=== PATIENT | female | born 1960 | race Caucasian/White ===

== ENCOUNTER → 2017-01-28 | Outpatient (CLI) | payer MEDICAID ==
[2017-01-28 16:33] LABS: Blood Urea Nitrogen 24 mg/dL (7-17); Non-African American GFR(MDRD) >60 (>60 ml/min/1.73 sqM)
--- NOTE | 2017-01-28 18:19 | MR ---
EXAMINATION TYPE: MR lumbar spine wo/w con DATE OF EXAM: 01/28/2017 5:45 PM COMPARISON: Lumbar spine x-ray May 24, 2016. Prior lumbar spine MRI April 25, 2015. HISTORY: Low back pain per order. Leg weakness numbness and pain per patient. TECHNIQUE: Multiplanar, multisequence images of the lumbar spine is performed without and with IV contrast, util izing 15 mL intravenous MultiHance FINDINGS: Sagittal images of the lumbar spine show vertebral body heights and alignment to remain sat isfactory. There is stable slight grade 1 anterolisthesis of L5 on S1. There is redemonstration of ar tifact from disc material L5-S1 level. There is redemonstration of artifact from posterior fusion andressa dware bilaterally at L4-S1 levels. Multilevel disc desiccation is seen above L4 level. Small posterio r disc herniations at L2-L3 and L3-L4 levels are noted above surgical levels. There is spinous proces s resection in lower lumbar levels. The conus medullaris remains normal in position and signal ending at mid L1 vertebral body level. The bone marrow signal intensity is within normal limits. No suspic ious postcontrast enhancement is seen. Axial images show the T12-L1 and L1-L2 levels to remain within normal limits. Axial images at the L2-L3 level show mild broad disc bulge mildly effacing anterior thecal sac, bilat eral neural foramina are patent, no significant change from prior study is seen. Axial images at L3-L4 level show mild to moderate broad disc bulge effacing anterior thecal sac. Ther e is facet degenerative change bilaterally with ligamentum flavum hypertrophy effacing posterior late ral thecal sac. There is mild to moderate right greater than left inferior neural foraminal narrowing redemonstrated. No significant change from prior study is seen. Axial images at L4-L5 level show artifact from surgical change. There is bilateral laminectomy defect s and spinous process resection. Spinal canal is preserved. Bilateral neural foramina are patent. Axial images at L5-S1 level show surgical change from posterior decompression, spinal canal is preser chanda. Artifact from fusion hardware and disc material is present. Bilateral neural foramina are grossl y patent on sagittal images. IMPRESSION: Postsurgical changes lower lumbar levels with stable alignment seen. Multilevel degenerat ashok changes in the mid lumbar spine redemonstrated and stable. No suspicious new findings identified.
== END | disposition home or self-care (01) ==
LOC: RADMRIMAIN 16:39
PROVIDERS: ATTEND Orthopaedic Surgery Orthopaedic Surgery of the Spine
DX: M47.26 Other spondylosis with radiculopathy, lumbar region (principal); M65.30 Trigger finger, unspecified finger; M85.80 Other specified disorders of bone density and structure, unspecified site; Z98.1 Arthrodesis status
CPT/HCPCS: 82565; 84520; 72158; A9577

== ENCOUNTER → 2017-02-01 | Outpatient (CLI) | payer MEDICAID ==
[2017-02-01 12:33] LABS: Anion Gap 8 mmol/L; Blood Urea Nitrogen 15 mg/dL (7-17); Calcium 9.9 mg/dL (8.4-10.2); Carbon Dioxide 29 mmol/L (22-30); Chloride 103 mmol/L (98-107); Glucose 118 mg/dL (74-99); Non-African American GFR(MDRD) >60 (>60 ml/min/1.73 sqM); Potassium 4.6 mmol/L (3.5-5.1); Sodium 140 mmol/L (137-145)
== END | disposition home or self-care (01) ==
LOC: LABWHC1 11:58
PROVIDERS: ATTEND Psychiatry & Neurology Neurology
DX: R53.1 Weakness (principal)
CPT/HCPCS: 36415; 80048

== ENCOUNTER → 2017-04-15 | Outpatient (CLI) | payer MEDICAID ==
[2017-04-15 13:17] VITALS: BP 118/78; PULSE 92; RESP 20; TEMP 98.3
--- NOTE | 2017-04-15 14:10 | P.HPIM ---
History of Present Illness H&P Date: 04/15/17 Chief Complaint: low back and leg pain This is a 56-year-old patient referred by Dr. Ruth for chronic pain in low back and legs. Patient initially had bilateral laminectomy and fusion with hardware placement (screws) at the L5/S1 level, but fell and could not move for an hour. She was given IV steroids and her weakness resolved but now the pain in her low back has worsened. Dr. Ruth referred her for injections after discussing spinal cord stimulation with her. Patient has been taking medications from surgeon including Stapleton and Valium medications with some relief. Patient denies adverse drug effects from medications. Patient also denies new-onset weakness, bowel/bladder incontinence, or any other signs or symptoms of cauda equina syndrome. There are no signs of acute intoxication, and no indications of medication diversion or overuse. Patient notes that pain worsens significantly with standing and walking, and improves with rest, ice and medication. Patient has used several types of medications for pain, including NSAIDS, OPIOIDS (Stapleton), and BENZODIAZEPINES (Valium). Patient HAS had surgery (lami and instrumentation 2013). Patient HAS NOT had spinal injections previously. Patient HAS NOT had physical therapy recently. In addition to above, 13-point review of systems is also negative for chest pain , shortness of breath, changes in vision, changes in hearing, new onset weakness , abdominal pain, diarrhea, extreme fatigue, malaise, fever, skin changes, homicidal or suicidal ideation, or bowel or bladder incontinence. Vital Signs: Reviewed in EMR Gen: WDWN, AAOx3, NAD HEENT: NCAT, EOMI, hearing grossly normal Pulm: resp unlabored Abd: soft, NT, ND Neck: supple, trachea midline ROM in flexion lumbar spine: reduced ROM in extension lumbar spine: reduced Lumbar paravertebral tenderness: + Facet loading: + bilateral SI joint tenderness: + L > R Primo's test: + L > R Straight leg raise: + LLE Neuro: CN II-XII grossly intact, muscle strength lower extremities PRESERVED Past Medical History Past Medical History: Hypertension Additional Past Medical History / Comment(s): , MIGRAINES, FASCITIS, BRONCHITIS , diverticulitis History of Any Multi-Drug Resistant Organisms: None Reported Past Surgical History: Back Surgery, Cholecystectomy Additional Past Surgical History / Comment(s): ANGEL SX, D&C X2 Past Anesthesia/Blood Transfusion Reactions: Postoperative Nausea & Vomiting ( PONV) Smoking Status: Former smoker - Past Family History Mother Additional Family Medical History / Comment(s): none, grandfather had colon ca. Medications and Allergies Home Medications Medication Instructions Recorded Confirmed Type Cyclobenzaprine [Flexeril] 10 mg PO TID PRN 07/16/16 04/15/17 History Diazepam [Valium] 5 mg PO TID PRN 07/16/16 04/15/17 History Gabapentin [Neurontin] 400 mg PO TID 07/16/16 04/15/17 History HYDROcodone/APAP 7.5-325MG [Stapleton 1 tab PO TID PRN 07/16/16 04/15/17 History 7.5-325] Lisinopril [Zestril] 20 mg PO DAILY 07/16/16 04/15/17 History Melatonin 3 mg PO HS PRN 07/16/16 04/15/17 History Allergies Allergy/AdvReac Type Severity Reaction Status Date / Time methocarbamol [From Robaxin] Allergy Swelling Verified 04/15/17 12:58 sumatriptan [From Imitrex] Allergy Shortness Verified 04/15/17 12:58 of breath sumatriptan succinate Allergy Shortness Verified 04/15/17 12:58 [From Imitrex] of Breath Physical Exam Vitals: Vital Signs Temp Pulse Resp BP Pulse Ox 04/15/17 13:01 98.3 F 92 20 118/78 95 Intake and Output 04/14/17 04/15/17 04/15/17 22:59 06:59 14:59 Other: Weight 81.647 kg Patient Weight 04/16/17 06:59 Weight 81.647 kg Assessment and Plan (1) Lumbar postlaminectomy syndrome Status: Chronic (2) Spondylosis of lumbar region without myelopathy or radiculopathy Status: Chronic (3) Chronic pain syndrome Status: Chronic Plan: 1. Explanation: Opioid and psychological risk scores were reviewed. Diagnoses , prognoses, and multiple treatment options including but not limited to physical therapy, interventional therapies, adjuvant medical therapies, narcotic medication therapies, and surgery were discussed with the patient and all questions were answered to the patient's satisfaction. 2. Opioid agreement: no opioids prescribed today 3. Counseling: The patient was counseled extensively on BODY MASS INDEX, EXERCISE. Specifically, the patient was instructed regarding the importance of weight control, and exercise in the context of both chronic pain and overall health. 4. Procedures: caudal DIAMOND with lysis of adhesions 5. Consultations: none 6. Investigations: none 7. Medications: none 8. Disposition: f/u for procedure as scheduled; if little relief and if visibility on X-ray, consider MBB/RFA PQRS measures: 1-Patient's medications are documented in the chart. 2-Tobacco use is negative, counseling given 3-Patient has not had a pneumococcal vaccine. 4-Advanced care planning discussed, patient unable to give. 5-Opioid contract NOT signed with the patient as no opioids given. 6-Pain positive, follow-up visit or procedure scheduled 7-Patient's blood pressure measured and documented, and patient will follow up with the primary care due to hypertension. 8-Patient's weight was measured, and body mass index ABOVE the normal limits, and counseling was done. Patient instructed to follow up with PCP. 9-Patient WAS NOT identified as an unhealthy alcohol user. Time with Patient: Greater than 30
== END | disposition home or self-care (01) ==
LOC: PNWHC3 12:50
PROVIDERS: ATTEND Anesthesiology
DX: M96.1 Postlaminectomy syndrome, not elsewhere classified (principal); M47.816 Spondylosis without myelopathy or radiculopathy, lumbar region; G89.4 Chronic pain syndrome; Z87.891 Personal history of nicotine dependence; Z79.899 Other long term (current) drug therapy; Z88.8 Allergy status to other drugs, medicaments and biological substances
CPT/HCPCS: 99211

== ENCOUNTER → 2018-10-09 | Outpatient (CLI) | payer OTHER, BC | END | disposition home or self-care (01) | LOC: LABPAT 15:14 | PROVIDERS: ATTEND Orthopaedic Surgery Orthopaedic Surgery of the Spine | DX: Z01.812 Encounter for preprocedural laboratory examination (principal) | CPT/HCPCS: 36415; 87070 ==

== ENCOUNTER → 2018-10-27 | Outpatient (CLI) | payer OTHER, BC ==
[2018-10-27 15:41] LABS: Basophils # (A) 0.1 k/uL (0-0.2); Basophils % (A) 1 %; Eosinophils # (A) 0.3 k/uL (0-0.7); Eosinophils % (A) 6 %; HCT 44.1 % (34.0-46.0); HGB 14.8 gm/dL (11.4-16.0); Lymphocytes % (A) 20 %; MCH 31.3 pg (25.0-35.0); MCHC 33.5 g/dL (31.0-37.0); MCV 93.5 fL (80.0-100.0); Mean Platelet Volume 7.4; Monocytes # (A) 0.2 k/uL (0-1.0); Monocytes % (A) 5 %; Neutrophils # (A) 3.1 k/uL (1.3-7.7); Neutrophils % (A) 65 %; Platelet Count 313 k/uL (150-450); RBC 4.72 m/uL (3.80-5.40); RDW 11.4 % (11.5-15.5); WBC 4.9 k/uL (3.8-10.6)
[2018-10-27 15:48] LABS: Appearance,Urine Cloudy (Clear); Bilirubin,Urine Negative (Negative); Blood,Urine Negative (Negative); Color,Urine Yellow; Glucose,Urine (UA) Negative (Negative); Ketones,Urine Negative (Negative); Leukocyte Esterase,Urine Small (Negative); Mucus,Urine Rare /hpf; Nitrite,Urine Negative (Negative); PH, Urine 5.5 (5.0-8.0); Protein,Urine 1+ (Negative); RBC,Urine 9 /hpf (0-5); Specific Gravity,Urine 1.021 (1.001-1.035); Squamous Epithelial Cell,Urine 5 /hpf (0-4); Urobilinogen,Urine <2.0 mg/dL (<2.0); WBC,Urine 1 /hpf (0-5)
[2018-10-27 15:49] LABS: Calcium 10.8 mg/dL (8.4-10.2); Potassium 5.5 mmol/L (3.5-5.1)
[2018-10-27 15:50] LABS: INR 0.9 (<1.2); Partial Thromboplastin Time 28.4 sec (22.0-30.0); Prothrombin Time 9.6 sec (9.0-12.0)
== END | disposition home or self-care (01) ==
LOC: LABPAT 14:05
PROVIDERS: ATTEND Orthopaedic Surgery Orthopaedic Surgery of the Spine
DX: Z01.812 Encounter for preprocedural laboratory examination (principal); M48.061 Spinal stenosis, lumbar region without neurogenic claudication
CPT/HCPCS: 80048; 81001; 85025; 85610; 85730; 86850; 86900; 86901; 87070

== ENCOUNTER 2018-11-05 05:43 | Inpatient (IN) | payer OTHER, BC ==
[~2018-11-05 05:43] MED LIST: BACITRACIN 50,000 UNIT, POLYMYXIN B 500,000 UNIT in SODIUM CHLORIDE 0.9% IRRIGATIO 1,00... IRRIGATION ONE; ceFAZolin IN SWFI 2 GM/20 ML SYRINGE IVP ONE
[2018-11-05] MEDS ORDERED: MIDAZOLAM 2 MG/2 ML VIAL IV PRN (05:52)
[2018-11-05] MEDS ORDERED: SCOPOLAMINE 1.5MG/72HR PATCH TRANSDERM ONE (05:52)
[2018-11-05] MEDS ORDERED: DEXAMETHASONE SOD PHOSPHATE 10 MG/ML 1 ML VIAL IV ONE (05:52)
[2018-11-05] MEDS: LACTATED RINGERS 1,000 ML IV SCH (06:20)
[2018-11-05] MEDS: ONDANSETRON 4 MG/2 ML VIAL IVP ONE ×2 (06:33→11:23)
[2018-11-05] MEDS ORDERED: PROPOFOL 10 MG/ML 20 ML VIAL IV ONE (07:25)
[2018-11-05] MEDS ORDERED: LIDOCAINE 1% INJ 10MG/ML (20 ML MDV) ONE (07:25)
[2018-11-05] MEDS ORDERED: fentaNYL (PF) 50 MCG/ML 2 ML AMP ONE (07:25)
[2018-11-05] MEDS ORDERED: ROCURONIUM BROMIDE 10 MG/ML 10 ML VIAL IV ONE (07:25)
[2018-11-05] MEDS ORDERED: NEOSTIGMINE 1 MG/ML 10 ML VIAL ONE (07:25)
[2018-11-05] MEDS ORDERED: PHENYLEPHRINE-0.9% NACL SYG 1 MG/10 ML SYRINGE ONE (07:25)
[2018-11-05] MEDS ORDERED: GLYCOPYRROLATE 0.2 MG/ML 2 ML VIAL ONE (07:25)
[2018-11-05] MEDS ORDERED: ePHEDrine SULFATE/0.9% NACL/PF 50 MG/5 ML SYRINGE IV ONE (07:25)
[2018-11-05] MEDS ORDERED: MIDAZOLAM 2 MG/2 ML VIAL ONE (07:25)
[2018-11-05] MEDS ORDERED: HYDROmorphone (PF) 1 MG/ML ONE (07:25)
[2018-11-05] MEDS ORDERED: WATER FOR INJECTION, STERILE 10 ML VIAL IV ONE (07:25)
[2018-11-05] MEDS ORDERED: GELATIN SPONGE,ABSORB (LARGE) 1 EACH SPONGE TOPICAL ONE (07:43)
[2018-11-05] MEDS ORDERED: LIDOCAINE 0.5%-EPI 1:200,000 50 ML VIAL SQ ONE ×2 (08:03)
[2018-11-05] MEDS ORDERED: THROMBIN (BOVINE) 5,000 UNIT VIAL TOPICAL ONE (08:03)
[2018-11-05] MEDS ORDERED: LACTATED RINGERS 1,000 ML IV ONE (09:21)
--- NOTE | 2018-11-05 09:44 | XR ---
EXAMINATION TYPE: XR lumbar spine 1V DATE OF EXAM: 11/05/2018 COMPARISON: 05/24/2016 HISTORY: 58-year-old female needle placement TECHNIQUE: Single crosstable lateral view FINDINGS: Intraoperative view shows interbody device at L5-S1 and removal of prior L3-S1 posterior fusion hardw are. Needle is present at the pedicular level of L3. IMPRESSION: Intraoperative radiograph showing surgical needle at the L3 pedicle.
--- NOTE | 2018-11-05 10:51 | XR ---
EXAMINATION TYPE: XR lumbar spine 2 or 3V DATE OF EXAM: 11/05/2018 COMPARISON: NONE HISTORY: 58-year-old female hardware placement TECHNIQUE: 2 views FINDINGS: Images show placement of L3-L5 posterior fusion hardware and interbody device and L3-L4 which appears appropriately positioned. Old interbody device at L5-S1. IMPRESSION: Interval placement of posterior fusion hardware bridging L3 through L5 and new interbody device at L3 -L4.
[2018-11-05] MEDS ORDERED: MAGNESIUM HYDROXIDE 2,400 MG/10 ML CUP PO PRN (11:15)
[2018-11-05] MEDS ORDERED: HYDROmorphone 1 MG/ML 1 ML SYRINGE IVP PRN (11:15)
[2018-11-05] MEDS: HYDROmorphone 0.5 MG/0.5 ML SYRINGE IVP PRN ×8 (11:22→17:41)
[2018-11-05] MEDS: fentaNYL (PF) 50 MCG/ML 2 ML AMP IVP ONE ×2 (11:31→11:33)
--- NOTE | 2018-11-05 11:36 | P.OP ---
Date of Procedure: 11/05/18 Preoperative Diagnosis: L3 4 spinal stenosis Facet cyst L3 4 Adjacent level degeneration L3 4 with prior fusion L4-S1 Lower extremity radiculopathy Low back pain Retained hardware L4 5 L5-S1 Postoperative Diagnosis: Same Anesthesia: GETA Pathology: other (Products of L3 4 laminectomy including facet cyst and cultures sent to pathology and microbiology) Condition: stable Disposition: PACU Description of Procedure: BRIEF OPERATIVE NOTE Preoperative Diagnosis:L3 4 spinal stenosis Facet cyst L3 4 Adjacent level degeneration L3 4 with prior fusion L4-S1 Lower extremity radiculopathy Low back pain Retained hardware L4 5 L5-S1 Postoperative Diagnosis: Same with findings of solid fusion L4 5 L5-S1 Procedure: Removal of hardware deep L4 5 L5-S1 Expiration of fusion L4 5 L5-S1 with findings of solid fusion Laminectomy and decompression with excision of facet cyst/epidural mass at L3 4 Posterior lateral decompression and fusion L3 4 Transforaminal lumbar interbody fusion for a 360 fusion L3 4 Discectomy for decompression L3 4 Placement of interbody graft L3 4 Local autogenous bone grafting Use of Cell Saver Harvesting of bone marrow aspirated via the pedicle of L3 Use of bone graft extenders Use of neuro monitoring Surgeon: Dr. Ruth Voltage Inspector: Eder Gordon is present throughout the entire the case persistence during positioning, dissection, exposure, visualization, and all crucial elements of the case as well as closure. Anesthesia: General anesthesia per Dr. Arrington Estimated blood loss: Approximately 250 mL Complications: None apparent Components implanted: We implanted new K2M [place] pedicle screw system with 6.5 and 7.5 mm pedicle screws with 2 rods and 1 Crawford expandable interbody cage 9-12, with 1 package of Landy allograft bone graft and osteoamp sponge to supplement the local autogenous and bone marrow aspirate graft Disposition: To recovery room in good stable condition. OPERATIVE INDICATIONS The patient has had significant worsening issues in their lower back and lower extremities. In the past she had undergone a decompression and fusion at L4 5 and L5-S1 for her spinal stenosis with lower extremity radiculopathy and back pain. She had done well after that prior surgery at number of years ago. She continued to have some symptoms and difficulties with her regular activities but was able to manage her daily life adequately. However over the past year she has been having worsening symptoms at her back and into her lower extremities. She was resolving new symptoms that seem to be stemming from the L3 4 level worse on the left than the right. She is found have a facet cyst with adjacent level degeneration at L3 4 above her prior fusion of L4 to S1. Her imaging correlated with her low back and lower extremity worsening symptoms. The patient has been through conservative treatment. She is not having any prolonged benefit despite aggressive conservative care. We discussed various treatment options including surgery, and the patient wishes to proceed with surgery We discussed the risk, patient's alternatives and benefits of surgery including but not limited to, risk of bleeding risk of infection, risk of need for further surgery, risk of decreased, loss of motion, muscle function, malunion nonunion, hardware failure, nerve damage, paralysis, heart attack, blindness and . OPERATIVE SUMMARY After discussing all the risks, patient alternatives and benefits at length, the patient elected to proceed with surgical intervention, signed informed consent, and presented for their procedure. The patient was seen and examined in the preoperative holding area and the surgical site was marked. The patient was given antibiotics and brought to the operating room. The patient was sedated and intubated by anesthesia in standard fashion. The patient was positioned on to the operating room table in a prone position on the appropriate frame which was well-padded and well molded. We were careful to pad any bony prominences and pressure points. We were careful to maintain the patient's cervical spine and good neutral alignment and position throughout. The patient was prepped and draped in a normal standard fashion. An appropriate timeout and keystone protocol performed. We were able to proceed with the surgery. The local wound area was infiltrated with local anesthetic. An incision was made at the midline longitudinally over the appropriate levels utilizing her prior incision from L4 to S1 and extending it cephalad over L3. Dissection was taken down subcutaneously to the level of the fascia which was split midline. There is significant scar tissue and dissection was a bit more tedious due to her prior surgery. Dissection was taken over the lamina bilaterally over the facet joints and to the transverse processes. There is significant bone mass formation which I was able dissect around and removed portions of the bony overgrowth over the screws and rods from L4 to S1. I was able expose the hardware appropriately from L4 to S1. I was unable to remove the hardware with the screws and rods and cross-link at L4 5 and L5-S1 from the bone and deep tissue. The hardware was checked was removed and was found to be in total. As able check over the fusion mass and there was no evidence of any motion at L4 5 or L5-S1. We had findings of good solid fusion L4 5 and L5-S1. I exposed further over the transverse process and pedicles of L3. I was able place a sharp awl at the pedicle of L3. Intraoperative x-ray was taken which showed a marker at the appropriate level of L3. With the appropriate level positively confirmed, we were able to proceed with placement of the pedicle holes and screws. The patient had all their twitches back. The wound was copiously irrigated and suctioned dry as had been done periodically throughout the case. Screw holes were established similarly at each level bilaterally at L3. A sharp awl was used to establish the starting hole. It was palpated and found to have good for ray and good base. A monitored Steffee probe was used to establish the pedicle hole. It was positioned so there was no stimulation at 12 mA. The hole was palpated and found to have good for ray and a good base. The hole was tapped with the appropriate sized tap. The transverse process was decorticated with a high-speed bur. I decided to use the screw holes at L5 bilaterally for further fixation. Those holes were palpated and found to have good for ray and a good base as were the other holes. I was able to use these holes to place the appropriate size screw and good alignment and good position with good bony purchase. When the screws were inserted there were stimulated, and found to have no stimulation at 20 mA. I was able to turn my attention to the decompression. decompression was performed with a combination of rongeurs, curettes, Kerrison rongeurs and a ball -tip feeler. All of the bone that was removed was stripped and morcellized for use as autogenous bone graft later in the case. There was evidence of a facet cyst on the left at L3 4. The tissue that was taken down was sent for pathology and intraoperative culture was taken as well. There is no evidence of pus or purulence. There is no evidence of infection. I was able to obtain good central decompression as well as wide bilateral foraminal decompression. There is no evidence of dural tear or leak. Good hemostasis was maintained. The wound was irrigated and suctioned dry. I performed a complete facetectomy at the appropriate level on the most symptomatic side on the left. All bone that was removed was saved for local autogenous bone grafting. I was able to gain access to the disc space at the appropriate level/levels. Good hemostasis was maintained. I was able to protect the neurologic structures. There is some disc protrusion causing further distortion of the traversing nerve root. A discectomy was performed. This provided further decompression. I was also able to perform complete discectomy and endplate preparation with a combination of pituitary curettes, rasps and scrapers. With the interbody space prepared, I was able to do appropriate sizing. The appropriate size cage was chosen. The wound was irrigated and suctioned dry. The interbody space was packed with local autogenous bone graft and a small portion of bone graft substitute, as was the cage itself. Protecting the soft tissue structures, I was able place the cage in good alignment and good position with good fit and fill. There is no evidence of extrusion of the graft material nor protrusion of the interbody device. The wound was irrigated and suctioned dry. With the hardware intact, intraoperative x-ray was again taken which showed good alignment and position of the hardware at the appropriate levels with the TLIF at L3 4 and the hardware from L3 to 5. We were then able to measure, contour and place the rods and appropriate hardware bilaterally. I was able to place capcrews, tighten them down, and torque them off appropriately. With this intact I was able to place the local otitis bone graft with additional bone graft enhancer as necessary into the posterior lateral gutters bilaterally. With the bone graft intact, a stable construct, and good decompression at the appropriate levels, we were able to proceed with closure. Good hemostasis was maintained. There is no evidence of dural tear or leak. The fascia was closed for a watertight closure. The subcutaneous tissue was closed over a superficial drain. The subcuticular tissue was closed with absorbable suture. The wound was cleaned and dried and dressed with the appropriate dressing. The drapes were broken down. The patient was gently rolled back onto their hospital bed being careful to maintain their cervical spine and good neutral alignment and position. They were woken up by anesthesia , extubated, and brought to the recovery room in good stable condition. The patient will be admitted to the hospital for appropriate postoperative care , medical management and monitoring. We will continue to follow them closely about the postoperative course.
[2018-11-05] MEDS: MEPERIDINE 50 MG/ML SYRINGE IVP ONE ×5 (11:40→14:10)
[2018-11-05] MEDS: diphenhydrAMINE 50 MG/ML 1 ML VIAL IVP ONE ×2 (12:33→14:13)
[2018-11-05 14:31] VITALS: BMI 28.6
[2018-11-05] MEDS ORDERED: SODIUM CHLORIDE 0.9% 500 ML 500 ML IV ONE ×2 (14:45→14:53)
[2018-11-05] MEDS: SODIUM CHLORIDE 0.9% 1,000 ML IV SCH ×2 (15:03→23:10)
[2018-11-05] MEDS ORDERED: SODIUM CHLORIDE 0.9% 250 ML IV ONE (17:00)
--- NOTE | 2018-11-05 17:05 | P.CONS ---
History of Present Illness - Reason for Consult Consult date: 11/05/18 Medical management Requesting physician: Michael Ruth - Chief Complaint Spinal stenosis post surgery, L3-L4 laminectomy, hypertension, neuropathy - History of Present Illness 58-year-old female one of my office patient with known for the last few years with past medical history of hypertension, neuropathy, severe GERD, chronic lower back pain who had previously fusion and rhiannon with hardware of the L4 to S1 with Dr. Ruth continue to have lower lumbar pain was seen by Dr. Ruth and found worsening spinal stenosis in the L3-L4 area. Patient was hospitalized today for laminectomy and spinal stenosis surgery for higher level than last time. She is in the floor had Land catheter and still in quite the pain her medication where was started she had slight reaction to her sedation with extreme hypotension was placed on 125 mL of IV fluid for the last few hours and her blood pressure corrected nicely. Review of Systems CONSTITUTIONAL: Well-developed no acute respiratory distress. EYES: No icterus sclerae, no conjunctivitis. EARS, NOSE, MOUTH, THROAT, and FACE: No sore throat, lymphadenopathy, carotid bruits or deformity. RESPIRATORY: Mild shortness of breath no cough wheezes CARDIOVASCULAR: No CP, Palpitation, PND, Orthopnea, or angina. GASTROINTESTINAL: Mild abdominal pain with nausea no vomiting, no Diarrhea or constipation, No GI Bleed, no distention or masses. GENITOURINARY: Negative for Hematuria or UTI, no kidney stones. INTEGUMENT/BREAST: Negative for any muscular injury with mild osteoarthritis.. HEMATOLOGIC/LYMPHATIC: Negative for bleed or purpura. MUSCULOSKELTAL: Negative for Myalgia or arthralgia. NEURLOGICAL: Still have mild burning sensation with neuropathy of the lower extremity with quite bit lower back pain BEHAVIORAL/PSYCH: Negative. ENDOCRINE: Negative. Past Medical History Past Medical History: GERD/Reflux, Hypertension, Neurologic Disorder Additional Past Medical History / Comment(s): MIGRAINES, BRONCHITIS, diverticulitis, ogilivie syndrome, synovial cyst L3-L4, neck pain History of Any Multi-Drug Resistant Organisms: None Reported Past Surgical History: Back Surgery, Cholecystectomy Additional Past Surgical History / Comment(s): ANGEL SX, D&C X2, back surgery with rods and screw s1-L4, lumbar fusion 11/05/2018 Past Anesthesia/Blood Transfusion Reactions: Postoperative Nausea & Vomiting ( PONV) Past Psychological History: No Psychological Hx Reported Smoking Status: Former smoker Past Alcohol Use History: Occasional Additional Past Alcohol Use History / Comment(s): smoker for 1 year <1ppd quit 36 years ago Past Drug Use History: None Reported - Past Family History Mother Family Medical History: No Reported History Additional Family Medical History / Comment(s): none, grandfather had colon ca. Medications and Allergies Home Medications Medication Instructions Recorded Confirmed Type Gabapentin [Neurontin] 400 mg PO HS 07/16/16 11/05/18 History Lisinopril [Zestril] 20 mg PO BID 07/16/16 11/05/18 History Amitriptyline HCl [Elavil] 30 mg PO HS 09/11/18 11/05/18 History Esomeprazole Magnesium [NexIUM] 40 mg PO DAILY 09/11/18 11/05/18 History tiZANidine [Zanaflex] 2 mg PO Q4H 09/11/18 11/05/18 History tiZANidine [Zanaflex] 8 mg PO HS 09/11/18 11/05/18 History ALPRAZolam [Xanax] 0.25 mg PO BID 10/15/18 11/05/18 History buPROPion [Wellbutrin] 100 mg PO BID 10/15/18 11/05/18 History oxyCODONE-APAP 10-325MG [Percocet 1 tab PO DAILY PRN 11/03/18 11/05/18 History 10-325 mg] Allergies Allergy/AdvReac Type Severity Reaction Status Date / Time methocarbamol [From Robaxin] Allergy Swelling Verified 11/05/18 15:21 sumatriptan [From Imitrex] Allergy Shortness Verified 11/05/18 15:21 of breath sumatriptan succinate Allergy Shortness Verified 11/05/18 15:21 [From Imitrex] of Breath Physical Exam Vitals: Vital Signs Temp Pulse Pulse Pulse Resp BP BP 11/05/18 16:39 16 105/71 11/05/18 16:37 11/05/18 15:40 83/51 11/05/18 15:14 97.3 F L 80 14 90/55 11/05/18 14:55 12 87/53 11/05/18 14:42 12 74/46 11/05/18 13:45 89 16 86/44 11/05/18 13:30 58 L 16 86/48 11/05/18 13:15 63 16 88/41 11/05/18 13:00 62 16 91/45 11/05/18 12:52 99/54 11/05/18 12:45 56 L 16 86/50 11/05/18 12:30 65 16 93/53 11/05/18 12:17 85 16 90/54 11/05/18 12:02 62 16 97/55 11/05/18 11:45 81 16 105/72 11/05/18 11:30 70 16 105/72 11/05/18 11:17 98 F 84 12 128/75 11/05/18 06:40 98 F 69 18 148/95 Pulse Ox 11/05/18 16:39 11/05/18 16:37 94 L 11/05/18 15:40 11/05/18 15:14 100 11/05/18 14:55 100 11/05/18 14:42 100 11/05/18 13:45 98 11/05/18 13:30 99 11/05/18 13:15 97 11/05/18 13:00 96 11/05/18 12:52 11/05/18 12:45 96 11/05/18 12:30 98 11/05/18 12:17 98 11/05/18 12:02 98 11/05/18 11:45 98 11/05/18 11:30 100 11/05/18 11:17 99 11/05/18 06:40 98 Intake and Output 11/05/18 11/05/18 11/05/18 06:59 14:59 22:59 Intake Total 100 2501 1000 Output Total 500 Balance 100 2000 1000 Intake: IV 100 2501 1000 Sodium Chloride 0.9% 500 1000 ml 500 ml @ 999 mls/hr IV .Q31M ONE Rx#:[id number] Output: Urine 250 Estimated Blood Loss 250 Other: Voiding Method Indwelling Catheter General Appearance: Alert, cooperative, no distress, appears stated age. Neck HEENT: Supple, no lymphadenopathy, no thyroid enlargement, no carotid bruits. Lungs: Clear to auscultation without crackles or wheezes no rhonchi, no deformity. Chest Wall: normal expansion with deep inspiration no tenderness and no deformity was found on exam, no costochondral pain or discomfort. Heart: Regular rate and rhythm, S1, S2 normal, no murmur, rub or gallop. Back: Incision in the L-spine been cover with dressing with no bleeding still have significant tenderness over the surgical site area have drainage tube as well. Abdomen: Soft, non-tender, bowel sounds active all four quadrants, no masses, no organomegaly. Extremities: Extremities normal, atraumatic, no cyanosis or edema. Pulses: 2+ and symmetric. Skin: Skin color, texture, tugor normal, no rashes or lesions. Neurologic: Alert oriented x3 cranial nerves II through XII intact, no motor deficit, no abnormal balance or gait. Results CBC & Chem 7: 11/05/18 06:25 Assessment and Plan Plan: 1 post L3-L4 laminectomy and spinal stenosis surgery: Doing better so far resume home meds continue pain management continue to watch patient hemodynamic status, GI, DVT and pulmonary prophylaxis protocol. 2 chronic pain with postsurgical pain: Patient remain on Dilaudid and Zanaflex for now. 3 hypertension: Continue lisinopril 20 mg twice a day. 4 chronic neuropathy: Mostly affected by the severity of her back problem has been on gabapentin 400 mg daily at bedtime. 5 Chronic depression: Has been on Wellbutrin 100 mg twice a day and Elavil 30 mg daily at bedtime. 6 GERD/GI prophylaxis: Patient is on Nexium 40 mg daily. DVT prophylaxis: Patient will be on early mobilization and knee-high VINCENT hose if needed heparin subcutaneous can be use. CODE STATUS: Full code. Dr. Ruth thank you very much for the consult and check and be any further help to please let me know.
[2018-11-05] MEDS: ONDANSETRON 4 MG/2 ML VIAL IVP PRN (17:41)
[2018-11-05] MEDS: oxyCODONE-APAP 10-325MG 1 EACH TAB PO PRN (17:52)
[2018-11-05] MEDS: ALPRAZolam 0.25 MG TAB PO PRN (17:55)
[2018-11-05] MEDS: HYDROmorphone 1 MG/ML 1 ML SYRINGE IVP PRN ×2 (20:44→23:40)
[2018-11-05] MEDS ORDERED: LISINOPRIL 20 MG TAB PO SCH (21:00)
[2018-11-05] MEDS ORDERED: GABAPENTIN 400 MG CAP PO SCH (21:00)
[2018-11-05] MEDS: AMITRIPTYLINE HCL 10 MG TAB PO SCH (21:17)
[2018-11-05] MEDS: tiZANidine 4 MG TAB PO SCH (21:17)
[2018-11-05] MEDS: buPROPion 100 MG TAB PO SCH (21:17)
[2018-11-06] MEDS: ONDANSETRON 4 MG/2 ML VIAL IVP PRN ×2 (03:02→10:04)
[2018-11-06] MEDS: HYDROmorphone PCA 5 MG/25 ML SYRINGE IV PRN ×2 (03:31→21:36)
[2018-11-06] MEDS: LACTATED RINGERS 1,000 ML IV SCH (04:44)
[2018-11-06] MEDS: PANTOPRAZOLE 40 MG TABLET PO SCH (07:59)
[2018-11-06] MEDS: SENNOSIDES-DOCUSATE SODIUM 1 EACH TAB PO SCH (07:59)
[2018-11-06] MEDS: buPROPion 100 MG TAB PO SCH ×2 (07:59→21:28)
[2018-11-06] MEDS: ALPRAZolam 0.25 MG TAB PO PRN (08:08)
[2018-11-06 08:43] LABS: Potassium 4.2 mmol/L (3.5-5.1)
[2018-11-06 08:44] LABS: Calcium 8.7 mg/dL (8.4-10.2)
[2018-11-06 08:46] LABS: Basophils % (A) 0 %; Eosinophils # (A) 0.2 k/uL (0-0.7); Eosinophils % (A) 2 %; HCT 31.8 % (34.0-46.0); Lymphocytes # (A) 0.4 k/uL (1.0-4.8); Lymphocytes % (A) 4 %; MCH 31.7 pg (25.0-35.0); MCHC 32.6 g/dL (31.0-37.0); MCV 97.3 fL (80.0-100.0); Mean Platelet Volume 6.8; Monocytes # (A) 0.4 k/uL (0-1.0); Monocytes % (A) 4 %; Neutrophils # (A) 8.7 k/uL (1.3-7.7); Neutrophils % (A) 88 %; Platelet Count 193 k/uL (150-450); RBC 3.27 m/uL (3.80-5.40); RDW 11.5 % (11.5-15.5); WBC 9.9 k/uL (3.8-10.6)
[2018-11-06 08:50] LABS: HGB 10.4 gm/dL (11.4-16.0)
[2018-11-06] MEDS ORDERED: BISACODYL 10 MG SUPP RECTAL STA (09:12)
[2018-11-06] MEDS: GABAPENTIN 400 MG CAP PO SCH ×2 (10:04→21:28)
--- NOTE | 2018-11-06 10:13 | P.PN ---
Progress Note - Text Progress Note Date: 11/06/18 Postoperative day #1 Patient is seen and examined today at bedside. The patient has some pain around the surgical site as expected. She states she is having quite severe pain medication is helping some degree. She is on a Dilaudid BURNER TENDER. She has been up out of bed couple of times to use the bathroom. She was having some nausea yesterday but feels that it has cleared up today she has not yet had significant oral intake. Physical Exam Afebrile with stable vital signs Abdomen is soft nontender. Chest has good excursion deep and space expiration The incision site is clean dry and intact. No erythema there is no purulence. The dressing and the drain are intact at her back Extremities have not had neurologic change from prior to surgery. She has sustained dorsiflexion plantarflexion and EHL intact Calves and thighs were soft nontender without evidence of DVT. Assessment/Plan Postoperative day #1 status post open decompression and fusion L3 4 with removal of hardware L4 5 L5-S1 for her spinal stenosis adjacent level degeneration facet cyst with lower extremity radiculopathy and weakness. Patient is progressing as expected from the surgery. We will try to get her more mobile today. Hopefully we'll be able to decrease the IV pain medication that she has been using and turgor her to orals in the next day or 2 We will continue to increase the patient's mobilization with therapy. We will continue pain control with oral or IV medications. We'll continue to follow patient closely.
--- NOTE | 2018-11-06 13:16 | P.PN ---
Subjective Progress Note Date: 11/06/18 58-year-old female one of my office patient with known for the last few years with past medical history of hypertension, neuropathy, severe GERD, chronic lower back pain who had previously fusion and rhiannon with hardware of the L4 to S1 with Dr. Ruth continue to have lower lumbar pain was seen by Dr. Ruth and found worsening spinal stenosis in the L3-L4 area. Patient was hospitalized today for laminectomy and spinal stenosis surgery for higher level than last time. She is in the floor had Land catheter and still in quite the pain her medication where was started she had slight reaction to her sedation with extreme hypotension was placed on 125 mL of IV fluid for the last few hours and her blood pressure corrected nicely. 11/06: Patient continues to have problems with pain control complaining of back spasms. She is on a WHITEWASHER for pain control. Gabapentin will be increased to twice daily at 400 mg each. She has been resumed on Zanaflex and encouraged to request this as needed. Land catheter was removed last evening. Patient is having difficulty with constipation and Dulcolax suppository added. Blood pressure is better today at 106/70. Lisinopril will remain on hold. Pulse ox is 94% on 2 L. Review of Systems CONSTITUTIONAL: Well-developed no acute respiratory distress. EYES: No icterus sclerae, no conjunctivitis. EARS, NOSE, MOUTH, THROAT, and FACE: No sore throat, lymphadenopathy, carotid bruits or deformity. RESPIRATORY: Mild shortness of breath no cough wheezes CARDIOVASCULAR: No CP, Palpitation, PND, Orthopnea, or angina. GASTROINTESTINAL: Mild abdominal pain with nausea no vomiting, no Diarrhea or constipation, No GI Bleed, no distention or masses. GENITOURINARY: Negative for Hematuria or UTI, no kidney stones. INTEGUMENT/BREAST: Negative for any muscular injury with mild osteoarthritis.. HEMATOLOGIC/LYMPHATIC: Negative for bleed or purpura. MUSCULOSKELTAL: Negative for Myalgia or arthralgia. Complains of back pain and spasm NEURLOGICAL: Still have mild burning sensation with neuropathy of the lower extremity with quite bit lower back pain BEHAVIORAL/PSYCH: Negative. ENDOCRINE: Negative. Objective - Vital Signs Vital signs: Vital Signs Temp 98.3 F 11/06/18 08:04 Pulse 96 11/06/18 08:04 Resp 16 11/06/18 08:04 BP 106/70 11/06/18 08:04 Pulse Ox 94 L 11/06/18 09:46 Intake & Output 11/05/18 11/06/18 11/06/18 18:59 06:59 18:59 Intake Total 3501 Output Total 500 3175 Balance 3001 -3175 Intake: IV 3501 Sodium Chloride 0.9% 500 1000 ml 500 ml @ 999 mls/hr IV .Q31M ONE Rx#:[id number] Output: Urine 250 3175 Estimated Blood Loss 250 Other: Voiding Method Indwelling Catheter Indwelling Catheter - Exam General Appearance: Alert, cooperative, acute distress secondary to pain, appears stated age. Neck HEENT: Supple, no lymphadenopathy, no thyroid enlargement, no carotid bruits. Lungs: Clear to auscultation without crackles or wheezes no rhonchi, no deformity. Chest Wall: normal expansion with deep inspiration no tenderness and no deformity was found on exam, no costochondral pain or discomfort. Heart: Regular rate and rhythm, S1, S2 normal, no murmur, rub or gallop. Back: Incision in the L-spine been cover with dressing with no bleeding still have significant tenderness over the surgical site area have drainage tube as well. Abdomen: Soft, non-tender, bowel sounds active all four quadrants, no masses, no organomegaly. Extremities: Extremities normal, atraumatic, no cyanosis or edema. Pulses: 2+ and symmetric. Skin: Skin color, texture, tugor normal, no rashes or lesions. Neurologic: Alert oriented x3 cranial nerves II through XII intact, no motor deficit, no abnormal balance or gait. - Labs CBC & Chem 7: 11/06/18 07:54 11/06/18 07:54 Labs: Abnormal Lab Results - Last 24 Hours (Table) 11/06/18 11/06/18 Range/Units 07:54 07:54 RBC 3.27 L (3.80-5.40) m/uL Hgb 10.4 L D (11.4-16.0) gm/dL Hct 31.8 L (34.0-46.0) % Neutrophils # 8.7 H (1.3-7.7) k/uL Lymphocytes # 0.4 L (1.0-4.8) k/uL Sodium 136 L (137-145) mmol/L Glucose 104 H (74-99) mg/dL Microbiology - Last 24 Hours (Table) 11/05/18 10:35 Gram Stain - Preliminary Other - Other Wound Culture - Preliminary 11/05/18 10:35 Anaerobic Culture - Preliminary Other - Other Assessment and Plan Plan: 1 post L3-L4 laminectomy and spinal stenosis surgery: Doing better so far resume home meds continue pain management continue to watch patient hemodynamic status, GI, DVT and pulmonary prophylaxis protocol. Gabapentin increased to twice daily, continue WHITEWASHER, continue Zanaflex. 2 chronic pain with postsurgical pain: Patient remain on Dilaudid and Zanaflex for now. 3 hypertension: Continue lisinopril 20 mg twice a day. 4 chronic neuropathy: Mostly affected by the severity of her back problem has been on gabapentin 400 mg daily at bedtime. 5 recurrent depression: Has been on Wellbutrin 100 mg twice a day and Elavil 30 mg daily at bedtime. 6 GERD/GI prophylaxis: Patient is on Nexium 40 mg daily. DVT prophylaxis: Patient will be on early mobilization and knee-high VINCENT hose if needed heparin subcutaneous can be use. CODE STATUS: Full code. Discharge plan: Most likely return home Impression and plan of care have been directed as dictated by the signing physician. Annette Cruz nurse practitioner acting as scribe for signing physician.
[2018-11-06] MEDS: SODIUM CHLORIDE 0.9% 1,000 ML IV SCH (15:14)
[2018-11-06] MEDS: tiZANidine 4 MG TAB PO SCH (15:31)
[2018-11-06] MEDS: BENZOCAINE/MENTHOL LOZENG 1 EACH LOZENGE MUCOUS MEM PRN (17:40)
[2018-11-06] MEDS: AMITRIPTYLINE HCL 10 MG TAB PO SCH (21:28)
[2018-11-07] MEDS: BENZOCAINE/MENTHOL LOZENG 1 EACH LOZENGE MUCOUS MEM PRN ×3 (01:51→18:05)
[2018-11-07] MEDS: SODIUM CHLORIDE 0.9% 1,000 ML IV SCH ×2 (05:31→17:17)
[2018-11-07] MEDS ORDERED: BISACODYL 10 MG SUPP RECTAL STA (07:03)
[2018-11-07] MEDS: buPROPion 100 MG TAB PO SCH ×2 (07:14→21:27)
[2018-11-07] MEDS: GABAPENTIN 400 MG CAP PO SCH ×2 (07:14→21:26)
[2018-11-07] MEDS: SENNOSIDES-DOCUSATE SODIUM 1 EACH TAB PO SCH (07:14)
[2018-11-07] MEDS: ALPRAZolam 0.25 MG TAB PO PRN (07:15)
[2018-11-07] MEDS: PANTOPRAZOLE 40 MG TABLET PO SCH (07:15)
[2018-11-07] MEDS: ONDANSETRON 4 MG/2 ML VIAL IVP PRN ×2 (07:27→15:17)
[2018-11-07] MEDS: LACTATED RINGERS 1,000 ML IV SCH (07:31)
--- NOTE | 2018-11-07 12:21 | P.PN ---
Progress Note - Text Progress Note Date: 11/07/18 Orthopedic Spine Patient is a pleasant 58-year-old female who is seen and examined at the bedside following posterior lateral decompression and fusion performed Saturday. Patient states they are doing ok postsurgically but continues to have significant pain. She has not been receiving oral pain medication. She continues to use a PRODUCTION LAPPING MACHINE OPERATOR received IV pain medications. She has not had a bowel movement postoperatively and is having some abdominal pain. Today she states she has some pain in the right lower extremity. She denies significant left lower extremity pain. She has been able to ambulate to the restroom. She has significant difficulty with changing positions due to her pain at the surgical site.. Currently does not complain of nausea, vomiting, fever, or chills. Patient is eating and voiding freely without difficulty. Nursing is at bedside and states patient will be given a suppository to aid in a bowel movement. Physical Exam Lumbar Fusion: Status post surgical day number 2 Patient is awake, alert, and oriented 3 Vital signs stable Good chest excursion with deep inspiration and expiration Abdomen soft nontender Dorsiflexion, plantarflexion, and extensor hallucis longus positive sustained bilaterally No signs or symptoms of DVT; no calf pain; pneumatic cuffs intact bilateral lower extremities Dressing is is removed during physical examination; no erythema, purulence, or signs of infection at the surgical site Hemovac drain is discontinued during physical examination Nonstick Telfa and Tegaderm reapplied over the surgical site Neurovascularly intact bilaterally lower extremities Assessment: L3-4 posterior lateral decompression and fusion with transforaminal lumbar interbody fusion with hardware extension to L5 and removal of hardware at L4-5 and L5-S1 Low back pain Lower extremity radiculopathy Constipation History of hypertension Plan: 1. Ambulate as tolerated; work with Physical Therapy to increase mobilization; patient may wear LSO brace while working with therapy and really increased ambulation 2. Continue pain control with IV and oral medications; will plan to discontinue Dilaudid PRODUCTION LAPPING MACHINE OPERATOR; patient may receive Dilaudid push IV and Percocet 10 mg/325 mg as prescribed as needed for relief of her symptoms; postoperative pain medications will be managed by Dr. Gaines in pain management 3. Dressing changed to Telfa and Tegaderm; Hemovac drain discontinued 4. Medical management can continue to manage patient for patient's other medical issues; patient currently have some difficulty with constipation and will be receiving a suppository to help facilitate a bowel movement 5. We will continue to follow the patient closely; patient is able to improve over the weekend, we'll plan for discharge this or this coming Saturday 6. Patient can follow-up with Eder Verduzco PA-C or Dr. Freddy Ruth at [facility] in 2-3 weeks following discharge
--- NOTE | 2018-11-07 14:01 | P.PN ---
Subjective Progress Note Date: 11/07/18 58-year-old female one of my office patient with known for the last few years with past medical history of hypertension, neuropathy, severe GERD, chronic lower back pain who had previously fusion and rhiannon with hardware of the L4 to S1 with Dr. Ruth continue to have lower lumbar pain was seen by Dr. Ruth and found worsening spinal stenosis in the L3-L4 area. Patient was hospitalized today for laminectomy and spinal stenosis surgery for higher level than last time. She is in the floor had Land catheter and still in quite the pain her medication where was started she had slight reaction to her sedation with extreme hypotension was placed on 125 mL of IV fluid for the last few hours and her blood pressure corrected nicely. 11/06: Patient continues to have problems with pain control complaining of back spasms. She is on a PATTERN GRADER SUPERVISOR for pain control. Gabapentin will be increased to twice daily at 400 mg each. She has been resumed on Zanaflex and encouraged to request this as needed. Land catheter was removed last evening. Patient is having difficulty with constipation and Dulcolax suppository added. Blood pressure is better today at 106/70. Lisinopril will remain on hold. Pulse ox is 94% on 2 L. 11/07: patient states she continues to have pain but a little bit better from yesterday. She states she is sleeping on and off. She has been able to get up to the bathroom. She has voided. She refused to take Dulcolax suppository yesterday but has asked for it today. Orthopedics has ordered back brace. Plan is to switch her from PATTERN GRADER SUPERVISOR over to oral pain medication with anticipated discharge on Saturday or Saturday. She has been afebrile, pulse ox 94% on room air, blood pressure 124/75, pulse running in the 90s. Review of Systems CONSTITUTIONAL: Well-developed no acute respiratory distress. EYES: No icterus sclerae, no conjunctivitis. EARS, NOSE, MOUTH, THROAT, and FACE: No sore throat, lymphadenopathy, carotid bruits or deformity. RESPIRATORY: Mild shortness of breath no cough wheezes CARDIOVASCULAR: No CP, Palpitation, PND, Orthopnea, or angina. GASTROINTESTINAL: Mild abdominal pain with nausea no vomiting, no Diarrhea or constipation, No GI Bleed, no distention or masses. GENITOURINARY: Negative for Hematuria or UTI, no kidney stones.denies urinary retention INTEGUMENT/BREAST: Negative for any muscular injury with mild osteoarthritis.. HEMATOLOGIC/LYMPHATIC: Negative for bleed or purpura. MUSCULOSKELTAL: Negative for Myalgia or arthralgia. Complains of back pain and spasm NEURLOGICAL: Still have mild burning sensation with neuropathy of the lower extremity with quite bit lower back pain BEHAVIORAL/PSYCH: Negative. ENDOCRINE: Negative. Objective - Vital Signs Vital signs: Vital Signs Temp 99.2 F 11/07/18 07:30 Pulse 100 11/07/18 07:30 Resp 18 11/07/18 07:30 BP 124/75 11/07/18 07:30 Pulse Ox 94 L 11/07/18 07:30 Intake & Output 11/06/18 11/07/18 11/07/18 18:59 06:59 18:59 Intake Total 675 Output Total 800 Balance -800 675 Intake: Intake, IV Titration 675 Amount Sodium Chloride 0.9% 1, 675 000 ml @ 75 mls/hr IV . [id number] MARIO ALBERTO Rx#:[id number] Output: Urine 800 Uretheral (Land) 800 Other: Voiding Method Toilet # Voids 1 2 - Exam General Appearance: Alert, cooperative, mild distress secondary to pain, appears stated age. Neck HEENT: Supple, no lymphadenopathy, no thyroid enlargement, no carotid bruits. Lungs: Clear to auscultation without crackles or wheezes no rhonchi, no deformity. Chest Wall: normal expansion with deep inspiration no tenderness and no deformity was found on exam, no costochondral pain or discomfort. Heart: Regular rate and rhythm, S1, S2 normal, no murmur, rub or gallop. Back: Incision in the L-spine been cover with dressing with no bleeding still have significant tenderness over the surgical site area have drainage tube as well. Abdomen: Soft, non-tender, bowel sounds active all four quadrants, no masses, no organomegaly. Extremities: Extremities normal, atraumatic, no cyanosis or edema. Pulses: 2+ and symmetric. Skin: Skin color, texture, tugor normal, no rashes or lesions. Neurologic: Alert oriented x3 cranial nerves II through XII intact, no motor deficit. - Labs CBC & Chem 7: 11/06/18 07:54 11/06/18 07:54 Labs: Microbiology - Last 24 Hours (Table) 11/05/18 10:35 Gram Stain - Preliminary Other - Other Wound Culture - Preliminary Assessment and Plan Plan: 1 post L3-L4 laminectomy and spinal stenosis surgery: Doing better so far resume home meds continue pain management continue to watch patient hemodynamic status, GI, DVT and pulmonary prophylaxis protocol. Gabapentin increased to twice daily, continue Zanaflex.PC to be transitioned to oral pain control. Back brace has been ordered by orthopedics. 2 chronic pain with postsurgical pain: Patient remain on Dilaudid and Zanaflex for now. 3 hypertension: Continue lisinopril 20 mg twice a day. 4 chronic neuropathy: Mostly affected by the severity of her back problem has been on gabapentin 400 mg daily at bedtimeincrease to twice daily. 5 recurrent depression: Has been on Wellbutrin 100 mg twice a day and Elavil 30 mg daily at bedtime. 6 GERD/GI prophylaxis: Patient is on Nexium 40 mg daily. DVT prophylaxis: Patient will be on early mobilization and knee-high VINCENT hose if needed heparin subcutaneous can be use. CODE STATUS: Full code. Discharge plan: Most likely return homeon Saturday or Saturday Impression and plan of care have been directed as dictated by the signing physician. Annette Cruz nurse practitioner acting as scribe for signing physician.
[2018-11-07] MEDS: HYDROmorphone 1 MG/ML 1 ML SYRINGE IVP PRN ×3 (15:13→21:31)
[2018-11-07] MEDS: AMITRIPTYLINE HCL 10 MG TAB PO SCH (21:27)
[2018-11-07] MEDS: tiZANidine 4 MG TAB PO SCH (21:27)
[2018-11-08] MEDS: BENZOCAINE/MENTHOL LOZENG 1 EACH LOZENGE MUCOUS MEM PRN (05:04)
[2018-11-08] MEDS: PANTOPRAZOLE 40 MG TABLET PO SCH (07:05)
[2018-11-08] MEDS: oxyCODONE-APAP 10-325MG 1 EACH TAB PO PRN ×3 (07:05→22:26)
[2018-11-08] MEDS: LACTATED RINGERS 1,000 ML IV SCH (07:06)
[2018-11-08] MEDS: SODIUM CHLORIDE 0.9% 1,000 ML IV SCH ×2 (07:06→20:54)
[2018-11-08] MEDS ORDERED: BISACODYL 10 MG SUPP RECTAL STA (07:30)
[2018-11-08] MEDS: GABAPENTIN 400 MG CAP PO SCH ×2 (11:09→21:06)
[2018-11-08] MEDS: buPROPion 100 MG TAB PO SCH ×2 (11:10→21:06)
[2018-11-08] MEDS: SENNOSIDES-DOCUSATE SODIUM 1 EACH TAB PO SCH (11:10)
[2018-11-08] MEDS: ONDANSETRON 4 MG/2 ML VIAL IVP PRN ×2 (12:19→21:12)
--- NOTE | 2018-11-08 13:05 | P.PN ---
Subjective 58-year-old female one of my office patient with known for the last few years with past medical history of hypertension, neuropathy, severe GERD, chronic lower back pain who had previously fusion and rhiannon with hardware of the L4 to S1 with Dr. Ruth continue to have lower lumbar pain was seen by Dr. Ruth and found worsening spinal stenosis in the L3-L4 area. Patient was hospitalized today for laminectomy and spinal stenosis surgery for higher level than last time. She is in the floor had Alnd catheter and still in quite the pain her medication where was started she had slight reaction to her sedation with extreme hypotension was placed on 125 mL of IV fluid for the last few hours and her blood pressure corrected nicely. 11/06: Patient continues to have problems with pain control complaining of back spasms. She is on a THERAPIST ASST for pain control. Gabapentin will be increased to twice daily at 400 mg each. She has been resumed on Zanaflex and encouraged to request this as needed. Land catheter was removed last evening. Patient is having difficulty with constipation and Dulcolax suppository added. Blood pressure is better today at 106/70. Lisinopril will remain on hold. Pulse ox is 94% on 2 L. 11/07: patient states she continues to have pain but a little bit better from yesterday. She states she is sleeping on and off. She has been able to get up to the bathroom. She has voided. She refused to take Dulcolax suppository yesterday but has asked for it today. Orthopedics has ordered back brace. Plan is to switch her from THERAPIST ASST over to oral pain medication with anticipated discharge on Saturday or Saturday. She has been afebrile, pulse ox 94% on room air, blood pressure 124/75, pulse running in the 90s. 11/08: Patient resting in bed, patient is tolerating diet, reports pain is controlled. She has been ambulating to the bathroom. She continues to receive Dilaudid for pain control as well as Neurontin and Percocet. She reports she did have a bowel movement yesterday after suppository although would like another one today. She denies any nausea vomiting or abdominal pain. She remains afebrile, blood pressure 143/88, 94% on 2 L via nasal cannula. Objective - Vital Signs Vital signs: Vital Signs Temp 99.2 F 11/08/18 06:26 Pulse 106 H 11/08/18 06:26 Resp 16 11/08/18 07:12 BP 143/88 11/08/18 06:26 Pulse Ox 94 L 11/08/18 06:26 Intake & Output 11/07/18 11/08/18 11/08/18 18:59 06:59 18:59 Other: Voiding Method Toilet # Voids 4 2 - Exam General Appearance: Alert, cooperative, no acute distress. Neck HEENT: Supple, no lymphadenopathy, no thyroid enlargement, no carotid bruits. Lungs: Clear to auscultation without crackles or wheezes no rhonchi, no deformity. Chest Wall: normal expansion with deep inspiration no tenderness and no deformity was found on exam, no costochondral pain or discomfort. Heart: Regular rate and rhythm, S1, S2 normal, no murmur, rub or gallop. Back: Incision in the L-spine been cover with dressing with no bleeding still have significant tenderness over the surgical site area Abdomen: Soft, non-tender, bowel sounds active all four quadrants, no masses, no organomegaly. Extremities: Extremities normal, atraumatic, no cyanosis or edema. Pulses: 2+ and symmetric. Skin: Skin color, texture, tugor normal, no rashes or lesions. Neurologic: Alert oriented x3 cranial nerves II through XII intact, no motor deficit. - Labs CBC & Chem 7: 11/06/18 07:54 11/06/18 07:54 Labs: Microbiology - Last 24 Hours (Table) 11/05/18 10:35 Anaerobic Culture - Preliminary Other - Other 11/05/18 10:35 Gram Stain - Final Other - Other Wound Culture - Final Assessment and Plan Plan: 1 post L3-L4 laminectomy and spinal stenosis surgery: Doing better so far resume home meds continue pain management continue to watch patient hemodynamic status, GI, DVT and pulmonary prophylaxis protocol. Continue Gabapentin twice daily, continue [email or web address] to be transitioned to oral pain control. Back brace has been ordered by orthopedics. 2 chronic pain with postsurgical pain: Patient remain on Dilaudid and Zanaflex for now. 3 hypertension: Continue lisinopril 20 mg twice a day. 4 chronic neuropathy: Gabapentin twice daily 5 recurrent depression: Has been on Wellbutrin 100 mg twice a day and Elavil 30 mg daily at bedtime. 6 GERD/GI prophylaxis: Patient is on Nexium 40 mg daily. DVT prophylaxis: Patient will be on early mobilization and knee-high VINCENT hose if needed heparin subcutaneous can be use. CODE STATUS: Full code. Discharge plan: Most likely return homeon Saturday or Saturday The above impression and plan of care have been discussed and directed by signing physician. Jasmin Hernandez nurse practitioner acting as scribe for signing physician.
--- NOTE | 2018-11-08 13:55 | P.PN ---
Progress Note - Text Progress Note Date: 11/08/18 Postoperative day #3 Patient is seen and examined today at bedside. The patient has some pain around the surgical site as expected, but is moving around the room adequately but is still complaining of significant pain. Pain is being controlled with medication. She has eaten very little but is tolerating some diet. She has not been having any vomiting since day one. Physical Exam Afebrile with stable vital signs Abdomen is soft nontender. Chest has good excursion deep and space expiration The incision site is clean dry and intact. No erythema there is no purulence. Her back is clean and dry with no active drainage Extremities have not had neurologic change from prior to surgery. She has sustained dorsal to plantar flexion and EHL intact Calves and thighs were soft nontender without evidence of DVT. Assessment/Plan Postoperative day #3 status post decompression and fusion L3 4 with removal of hardware L4 5 L5-S1 for her adjacent level degeneration facet cyst with spinal stenosis. Patient is progressing a little bit slowly from the surgery. She has a number of concerns for being at home especially because she lives by herself and is not confident that she will able to get around adequately on her own. We will have case management see her for discharge planning for possible placement versus home visits. She is moving adequately despite her pain and seems to be doing somewhat better than she feels she is. I tried to encourage her today that she is making progress and hopefully we'll be able to be discharged to home in the next day or 2 We will continue to increase the patient's mobilization with therapy. We will continue pain control with oral or IV medications. We'll continue to follow patient closely.
[2018-11-08] MEDS: ALPRAZolam 0.25 MG TAB PO PRN (14:16)
[2018-11-08] MEDS: HYDROmorphone 1 MG/ML 1 ML SYRINGE IVP PRN ×2 (17:38→21:06)
[2018-11-08] MEDS: AMITRIPTYLINE HCL 10 MG TAB PO SCH (21:05)
[2018-11-08] MEDS: tiZANidine 4 MG TAB PO SCH (21:06)
[2018-11-09] MEDS: LACTATED RINGERS 1,000 ML IV SCH (05:36)
[2018-11-09] MEDS: HYDROmorphone 1 MG/ML 1 ML SYRINGE IVP PRN ×3 (07:57→19:42)
[2018-11-09] MEDS: SENNOSIDES-DOCUSATE SODIUM 1 EACH TAB PO SCH (07:58)
[2018-11-09] MEDS: PANTOPRAZOLE 40 MG TABLET PO SCH (07:58)
[2018-11-09] MEDS: GABAPENTIN 400 MG CAP PO SCH ×2 (07:58→20:56)
[2018-11-09] MEDS: buPROPion 100 MG TAB PO SCH ×2 (07:59→20:56)
[2018-11-09] MEDS ORDERED: LACTULOSE 20 GM/30 ML CUP PO ONE (08:06)
[2018-11-09] MEDS: SODIUM CHLORIDE 0.9% 1,000 ML IV SCH (10:22)
[2018-11-09] MEDS: oxyCODONE-APAP 10-325MG 1 EACH TAB PO PRN ×3 (11:37→23:35)
--- NOTE | 2018-11-09 12:33 | P.PN ---
Subjective 58-year-old female one of my office patient with known for the last few years with past medical history of hypertension, neuropathy, severe GERD, chronic lower back pain who had previously fusion and rhiannon with hardware of the L4 to S1 with Dr. Ruth continue to have lower lumbar pain was seen by Dr. Ruth and found worsening spinal stenosis in the L3-L4 area. Patient was hospitalized today for laminectomy and spinal stenosis surgery for higher level than last time. She is in the floor had Land catheter and still in quite the pain her medication where was started she had slight reaction to her sedation with extreme hypotension was placed on 125 mL of IV fluid for the last few hours and her blood pressure corrected nicely. 11/06: Patient continues to have problems with pain control complaining of back spasms. She is on a CYBER OPS PLANNER for pain control. Gabapentin will be increased to twice daily at 400 mg each. She has been resumed on Zanaflex and encouraged to request this as needed. Land catheter was removed last evening. Patient is having difficulty with constipation and Dulcolax suppository added. Blood pressure is better today at 106/70. Lisinopril will remain on hold. Pulse ox is 94% on 2 L. 11/07: patient states she continues to have pain but a little bit better from yesterday. She states she is sleeping on and off. She has been able to get up to the bathroom. She has voided. She refused to take Dulcolax suppository yesterday but has asked for it today. Orthopedics has ordered back brace. Plan is to switch her from CYBER OPS PLANNER over to oral pain medication with anticipated discharge on Saturday or Saturday. She has been afebrile, pulse ox 94% on room air, blood pressure 124/75, pulse running in the 90s. 11/08: Patient resting in bed, patient is tolerating diet, reports pain is controlled. She has been ambulating to the bathroom. She continues to receive Dilaudid for pain control as well as Neurontin and Percocet. She reports she did have a bowel movement yesterday after suppository although would like another one today. She denies any nausea vomiting or abdominal pain. She remains afebrile, blood pressure 143/88, 94% on 2 L via nasal cannula. 11/09: Patient evaluated, she is postop day #4 status post decompression and fusion L3 through 4 with removal of hardware, she is resting in bed comfortably. Vital signs are stable and she remains afebrile. She still complains of quite a bit of discomfort, but is trying to ask for the pain medication less. Social work on consult for possible placement to [facility] versus home care. Objective - Vital Signs Vital signs: Vital Signs Temp 98.1 F 11/09/18 08:04 Pulse 90 11/09/18 08:04 Resp 16 11/09/18 08:04 BP 115/72 11/09/18 08:04 Pulse Ox 93 L 11/09/18 08:04 Intake & Output 11/08/18 11/09/18 11/09/18 18:59 06:59 18:59 Intake Total 296 200 240 Output Total 400 Balance -104 200 240 Intake: Oral 296 200 240 Output: Urine 400 Other: Voiding Method Toilet # Voids 2 2 - Exam General Appearance: Alert, cooperative, no acute distress. Neck HEENT: Supple, no lymphadenopathy, no thyroid enlargement, no carotid bruits. Lungs: Clear to auscultation without crackles or wheezes no rhonchi, no deformity. Chest Wall: normal expansion with deep inspiration no tenderness and no deformity was found on exam, no costochondral pain or discomfort. Heart: Regular rate and rhythm, S1, S2 normal, no murmur, rub or gallop. Back: Incision in the L-spine been cover with dressing with no bleeding still have significant tenderness over the surgical site area Abdomen: Soft, non-tender, bowel sounds active all four quadrants, no masses, no organomegaly. Extremities: Extremities normal, atraumatic, no cyanosis or edema. Pulses: 2+ and symmetric. Skin: Skin color, texture, tugor normal, no rashes or lesions. Neurologic: Alert oriented x3 cranial nerves II through XII intact, no motor deficit. - Labs CBC & Chem 7: 11/06/18 07:54 11/06/18 07:54 Assessment and Plan Plan: 1 post L3-L4 laminectomy and spinal stenosis surgery: Doing better so far resume home meds continue pain management continue to watch patient hemodynamic status, GI, DVT and pulmonary prophylaxis protocol. Continue Gabapentin twice daily, continue Zanaflex. Back brace has been ordered by orthopedics. She continues on IV Dilaudid and Percocet for pain control 2 chronic pain with postsurgical pain: Patient remain on Dilaudid and Zanaflex for now. 3 hypertension: Continue lisinopril 20 mg twice a day. 4 chronic neuropathy: Gabapentin twice daily 5 recurrent depression: Has been on Wellbutrin 100 mg twice a day and Elavil 30 mg daily at bedtime. 6 GERD/GI prophylaxis: Patient is on Nexium 40 mg daily. DVT prophylaxis: Patient will be on early mobilization and knee-high VINCENT hose if needed heparin subcutaneous can be use. CODE STATUS: Full code. Discharge plan: Most likely return homeon Saturday or Saturday The above impression and plan of care have been discussed and directed by signing physician. Jasmin Hernandez nurse practitioner acting as scribe for signing physician.
[2018-11-09] MEDS: HYDROmorphone 0.5 MG/0.5 ML SYRINGE IVP PRN (13:44)
[2018-11-09] MEDS: ALPRAZolam 0.25 MG TAB PO PRN (13:48)
--- NOTE | 2018-11-09 16:15 | P.PN ---
Progress Note - Text Progress Note Date: 11/09/18 Postoperative day #4 Patient is seen and examined today at bedside. The patient has had good improvement since yesterday and feels that she is turning the corner. She feels her pain is improved and she has been able to get up. She is only tolerating small amount of diet but and is not vomiting. She was able have bowel movements. She still requiring some IV pain medications. The patient has some pain around the surgical site as expected. Pain is being controlled with medication. Physical Exam Afebrile with stable vital signs Abdomen is soft nontender. Chest has good excursion deep and space expiration The incision site is clean dry and intact. No erythema there is no purulence. There is no active drainage at her back. Extremities have not had neurologic change from prior to surgery. She has sustained dorsal flexion plantar flexion and EHL intact Calves and thighs were soft nontender without evidence of DVT. Assessment/Plan Postoperative day #4 status post open decompression and fusion L3 4 with removal of hardware and exploration of fusion L4 to S1 for her adjacent level spinal stenosis with facet cyst excision Patient is progressing as expected from the surgery. She started off somewhat slow but seems to be turning the corner now. She lives alone and is difficult for her to make sure that she she will be safe on her own at home but I think she is making good progress and will likely be able to be discharged home tomorrow likely with home care. We will continue to increase the patient's mobilization with therapy. We will continue pain control with oral or IV medications. We'll continue to follow patient closely.
[2018-11-09] MEDS: diphenhydrAMINE 25 MG CAP PO PRN (19:26)
[2018-11-09] MEDS: tiZANidine 4 MG TAB PO SCH (20:56)
[2018-11-09] MEDS: AMITRIPTYLINE HCL 10 MG TAB PO SCH (20:56)
[2018-11-09] MEDS: BENZOCAINE/MENTHOL LOZENG 1 EACH LOZENGE MUCOUS MEM PRN (23:35)
[2018-11-10 00:46] VITALS: TEMP 98
[2018-11-10] MEDS: diphenhydrAMINE 25 MG CAP PO PRN (01:36)
[2018-11-10] MEDS: HYDROmorphone 0.5 MG/0.5 ML SYRINGE IVP PRN ×2 (01:36→04:36)
[2018-11-10] MEDS: SODIUM CHLORIDE 0.9% 1,000 ML IV SCH ×2 (02:56→10:34)
[2018-11-10] MEDS: BENZOCAINE/MENTHOL LOZENG 1 EACH LOZENGE MUCOUS MEM PRN ×2 (04:41→09:41)
[2018-11-10] MEDS: PANTOPRAZOLE 40 MG TABLET PO SCH (07:04)
[2018-11-10] MEDS: LACTATED RINGERS 1,000 ML IV SCH (07:07)
[2018-11-10] MEDS: SENNOSIDES-DOCUSATE SODIUM 1 EACH TAB PO SCH (08:34)
[2018-11-10] MEDS: buPROPion 100 MG TAB PO SCH (08:34)
[2018-11-10] MEDS: ONDANSETRON 4 MG/2 ML VIAL IVP PRN (08:34)
[2018-11-10] MEDS: GABAPENTIN 400 MG CAP PO SCH (08:34)
[2018-11-10] MEDS: ALPRAZolam 0.25 MG TAB PO PRN (08:36)
[2018-11-10] MEDS ORDERED: ONDANSETRON 4 MG TAB PO PRN (08:54)
[2018-11-10] MEDS ORDERED: hydrOXYzine HCL 10 MG TAB PO SCH (09:00)
--- NOTE | 2018-11-10 09:00 | P.DS ---
Providers Date of admission: 11/05/18 05:43 Expected date of discharge: 11/10/18 Attending physician: Michael Ruth Consults: 11/05/18 11:15 Consult Physician Routine Consulting Provider: George Martínez Reason/Comments: Medical management Do you want consulting provider notified?: Yes Primary care physician: George Martínez - Discharge Diagnosis(es) (1) Lumbar degenerative disc disease Current Visit: Yes Status: Acute (2) Lumbar back pain with radiculopathy affecting lower extremity Current Visit: Yes Status: Acute (3) History of lumbar fusion Current Visit: Yes Status: Acute (4) Status post lumbar spinal fusion Current Visit: Yes Status: Acute (5) Lumbar stenosis Current Visit: Yes Status: Acute Hospital Course: This is a pleasant 58-year-old female who presented with L3-4 adjacent level degenerative disc disease, facet cyst, and spinal canal stenosis with lower extremity radiculopathy, low back pain, and history of previous fusion with retained hardware L4-5 and L5-S1 who failed outpatient conservative therapy. She was admitted for an L3-4 posterior lateral decompression and fusion with transforaminal lumbar interbody fusion with hardware extension to L5 and removal of hardware at L4-5 and L5-S1. Postoperatively patient had significant difficulty with mobility and pain control. The symptoms have significantly improved over the weekend. She is no longer receiving IV pain medication. She was also having constipation but has been able to have a bowel movement. This morning she states she feels she has significantly improved over the weekend and does feel she may be ready for discharge home later today. This morning she is having significant difficulty with nausea and has vomited a few times this morning. She does not feel she is eating much food postoperatively due to her nausea. She states she has not experienced this plan of nausea in the past postoperatively. She has been given Zofran as needed for nausea. Her IV has been discontinued. Patient has also had some itching around the surgical site. Her symptoms have improved with hydroxyzine 10 mg. Dressing at the surgical site has been removed today. Steri-Strips remain intact. No active drainage from the surgical sitesignificant pain on palpation over the surgical site. Patient be clear for discharge from orthopedic spine standpoint once her nausea has had some improvement. We will plan to discharge her home with Zofran by mouth which she may take as prescribed as needed for nausea. Condition on day of discharge stable. Patient will be discharged home. Patient was cleared preoperatively for surgery by Dr. Martínez. Patient currently denies any nausea, vomiting, fever, or chills. Patient is voiding freely without difficulty. Patient may shower without a dressing intact. Patient should keep Steri-Strips intact and allow them to fall off naturally. Patient should refrain from driving until at least after their first follow-up appointment in the office. Patient should avoid excessive bending, lifting, and twisting; no lifting greater than 10 pounds. Patient may continue with Percocet 10 mg/325 mg in the outpatient setting for pain control as described by Dr. Gaines in pain management. He may adjust her medications as he feels appropriate for postoperative pain control. She is given a prescription for Zofran 4 mg 1 tab every 8 hours as needed for nausea, dispensed #12. She has been taking Zofran for nausea during her admission to the hospital without any significant difficulty. Physical Exam on day of discharge: Patient is awake, alert, and oriented 3 Vital signs stable Good chest excursion with deep inspiration and expiration Abdomen soft No signs or symptoms of DVT; no calf pain Extensor hallucis longus, plantarflexion, and dorsiflexion positive sustained bilateral lower extremities Incision is clean, dry, and intact; no bruising, purulence, or signs of infection Mild erythema around the edges of the Steri-Strips which may be due to postoperative tape Dressing is removed during physical examination; Steri-Strips remain intact Procedures: L3-4 posterior lateral decompression and fusion with transforaminal lumbar interbody fusion with hardware extension to L5 and removal of hardware and L4-5 and L5-S1 Patient Condition at Discharge: Stable Plan - Discharge Summary Discharge Rx Participant: No New Discharge Prescriptions: New Ondansetron [Zofran] 4 mg PO Q8HR PRN #12 tab PRN Reason: Nausea No Action Lisinopril [Zestril] 20 mg PO BID Gabapentin [Neurontin] 400 mg PO HS tiZANidine [Zanaflex] 8 mg PO HS tiZANidine [Zanaflex] 2 mg PO Q4H Amitriptyline HCl [Elavil] 30 mg PO HS Esomeprazole Magnesium [NexIUM] 40 mg PO DAILY buPROPion [Wellbutrin] 100 mg PO BID ALPRAZolam [Xanax] 0.25 mg PO BID oxyCODONE-APAP 10-325MG [Percocet 10-325 mg] 1 tab PO DAILY PRN PRN Reason: Pain Discharge Medication List Gabapentin [Neurontin] 400 mg PO HS 07/16/16 [History] Lisinopril [Zestril] 20 mg PO BID 07/16/16 [History] Amitriptyline HCl [Elavil] 30 mg PO HS 09/11/18 [History] Esomeprazole Magnesium [NexIUM] 40 mg PO DAILY 09/11/18 [History] tiZANidine [Zanaflex] 2 mg PO Q4H 09/11/18 [History] tiZANidine [Zanaflex] 8 mg PO HS 09/11/18 [History] ALPRAZolam [Xanax] 0.25 mg PO BID 10/15/18 [History] buPROPion [Wellbutrin] 100 mg PO BID 10/15/18 [History] oxyCODONE-APAP 10-325MG [Percocet 10-325 mg] 1 tab PO DAILY PRN 11/03/18 [ History] Ondansetron [Zofran] 4 mg PO Q8HR PRN #12 tab 11/10/18 [Rx] Follow up Appointment(s)/Referral(s): Eder Verduzco, BOONE [PHYSICIAN OPTOMETRY TEACHER] - 2 Weeks (Patient may follow-up with Eder Verduzco PA-C or Dr. Freddy Ruth at [facility] in 2-3 weeks following discharge. ) Activity/Diet/Wound Care/Special Instructions: 1. Patient may shower with Tegaderm dressing intact. 2. Patient may remove Tegaderm dressing in 3 days and shower without a dressing at that time. 3. Patient should keep Steri-Strips intact and allow them to fall off naturally. 4. Patient should refrain from driving until at least after their first follow- up appointment in the office. 5. Patient should avoid excessive bending, twisting, and lifting; no lifting greater than 10 pounds 6. Patient may wear LSO brace to aid in mobility and ambulation as needed 7. Take medications as prescribed 8. Do not soak in tub Discharge Disposition: HOME SELF-CARE
[2018-11-10] MEDS: oxyCODONE-APAP 10-325MG 1 EACH TAB PO PRN (09:38)
[2018-11-10 10:01] VITALS: BP 152/84; PULSE 91; RESP 16
--- NOTE | 2018-11-10 12:04 | P.PN ---
Subjective Progress Note Date: 11/10/18 58-year-old female one of my office patient with known for the last few years with past medical history of hypertension, neuropathy, severe GERD, chronic lower back pain who had previously fusion and rhiannon with hardware of the L4 to S1 with Dr. Ruth continue to have lower lumbar pain was seen by Dr. Ruth and found worsening spinal stenosis in the L3-L4 area. Patient was hospitalized today for laminectomy and spinal stenosis surgery for higher level than last time. She is in the floor had Land catheter and still in quite the pain her medication where was started she had slight reaction to her sedation with extreme hypotension was placed on 125 mL of IV fluid for the last few hours and her blood pressure corrected nicely. 11/06: Patient continues to have problems with pain control complaining of back spasms. She is on a PLASTIC FIXTURE BUILDER for pain control. Gabapentin will be increased to twice daily at 400 mg each. She has been resumed on Zanaflex and encouraged to request this as needed. Land catheter was removed last evening. Patient is having difficulty with constipation and Dulcolax suppository added. Blood pressure is better today at 106/70. Lisinopril will remain on hold. Pulse ox is 94% on 2 L. 11/07: patient states she continues to have pain but a little bit better from yesterday. She states she is sleeping on and off. She has been able to get up to the bathroom. She has voided. She refused to take Dulcolax suppository yesterday but has asked for it today. Orthopedics has ordered back brace. Plan is to switch her from PLASTIC FIXTURE BUILDER over to oral pain medication with anticipated discharge on Saturday or Saturday. She has been afebrile, pulse ox 94% on room air, blood pressure 124/75, pulse running in the 90s. 11/08: Patient resting in bed, patient is tolerating diet, reports pain is controlled. She has been ambulating to the bathroom. She continues to receive Dilaudid for pain control as well as Neurontin and Percocet. She reports she did have a bowel movement yesterday after suppository although would like another one today. She denies any nausea vomiting or abdominal pain. She remains afebrile, blood pressure 143/88, 94% on 2 L via nasal cannula. 11/09: Patient evaluated, she is postop day #4 status post decompression and fusion L3 through 4 with removal of hardware, she is resting in bed comfortably. Vital signs are stable and she remains afebrile. She still complains of quite a bit of discomfort, but is trying to ask for the pain medication less. Social work on consult for possible placement to [facility] versus home care. 2/4: Patient has better control of pain today. She did have a large bowel movement after lactulose but continues to have some right lower quadrant soreness. Plan is for discharge with home care today versus going to subacute rehab. The patient has been cleared by surgeon for discharge. We are adding in Atarax as well and this seemed to help her nausea. Patient is cleared from medicine for discharge home today. Review of Systems CONSTITUTIONAL: Well-developed no acute respiratory distress. EYES: No icterus sclerae, no conjunctivitis. EARS, NOSE, MOUTH, THROAT, and FACE: No sore throat, lymphadenopathy, carotid bruits or deformity. RESPIRATORY: Mild shortness of breath no cough wheezes CARDIOVASCULAR: No CP, Palpitation, PND, Orthopnea, or angina. GASTROINTESTINAL: Mild right lower quadrant soreness, mild nausea no vomiting, no Diarrhea or constipation, No GI Bleed, no distention or masses. GENITOURINARY: Negative for Hematuria or UTI, no kidney stones.denies urinary retention INTEGUMENT/BREAST: Negative for any muscular injury with mild osteoarthritis.. HEMATOLOGIC/LYMPHATIC: Negative for bleed or purpura. MUSCULOSKELTAL: Negative for Myalgia or arthralgia. Complains of back pain and spasm NEURLOGICAL: Still have mild burning sensation with neuropathy of the lower extremity with quite bit lower back pain BEHAVIORAL/PSYCH: Negative. ENDOCRINE: Negative. Objective - Vital Signs Vital signs: Vital Signs Temp 98.0 F 11/10/18 00:38 Pulse 85 11/10/18 00:38 Resp 15 11/10/18 00:38 BP 91/59 11/10/18 00:38 Pulse Ox 98 11/10/18 00:38 Intake & Output 11/09/18 11/10/18 11/10/18 18:59 06:59 18:59 Intake Total 598 725 Output Total 3 Balance 598 722 Intake: Oral 598 725 Output: Urine 3 Other: Voiding Method Toilet # Voids 2 3 # Bowel Movements 3 4 - Exam General Appearance: Alert, cooperative, no distress, appears stated age. Neck HEENT: Supple, no lymphadenopathy, no thyroid enlargement, no carotid bruits. Lungs: Clear to auscultation without crackles or wheezes no rhonchi, no deformity. Chest Wall: normal expansion with deep inspiration no tenderness and no deformity was found on exam, no costochondral pain or discomfort. Heart: Regular rate and rhythm, S1, S2 normal, no murmur, rub or gallop. Back: Incision in the L-spine been cover with dressing with no bleeding still have significant tenderness over the surgical site area have drainage tube as well. Abdomen: Soft, non-tender, bowel sounds active all four quadrants, no masses, no organomegaly. Extremities: Extremities normal, atraumatic, no cyanosis or edema. Pulses: 2+ and symmetric. Skin: Skin color, texture, tugor normal, no rashes or lesions. Neurologic: Alert oriented x3 cranial nerves II through XII intact, no motor deficit. - Labs CBC & Chem 7: 11/06/18 07:54 11/06/18 07:54 Labs: Microbiology - Last 24 Hours (Table) 11/05/18 10:35 Anaerobic Culture - Final Other - Other Assessment and Plan Plan: 1 post L3-L4 laminectomy and spinal stenosis surgery: Doing better so far resume home meds continue pain management continue to watch patient hemodynamic status, GI, DVT and pulmonary prophylaxis protocol. Gabapentin increased to twice daily, continue Zanaflex.PC to be transitioned to oral pain control. Back brace has been ordered by orthopedics. 2 chronic pain with postsurgical pain: Patient remain on Dilaudid and Zanaflex for now. 3 hypertension: Continue lisinopril 20 mg twice a day. 4 chronic neuropathy: Mostly affected by the severity of her back problem has been on gabapentin 400 mg daily at bedtimeincrease to twice daily. 5 recurrent depression: Has been on Wellbutrin 100 mg twice a day and Elavil 30 mg daily at bedtime. 6 GERD/GI prophylaxis: Patient is on Nexium 40 mg daily. DVT prophylaxis: Patient will be on early mobilization and knee-high VINCENT hose if needed heparin subcutaneous can be use. CODE STATUS: Full code. Discharge plan: home with [facility] Impression and plan of care have been directed as dictated by the signing physician. Annette Cruz nurse practitioner acting as scribe for signing physician.
[2018-11-10] MEDS ORDERED: LISINOPRIL 20 MG TAB PO STA (13:50)
== END 2018-11-10 14:10 | disposition home health service (06) | DRG 454 ==
LOC: 2ORMAIN 05:43 → 4SSUR 14:02
PROVIDERS: ADMIT Orthopaedic Surgery Orthopaedic Surgery of the Spine; ATTEND Orthopaedic Surgery Orthopaedic Surgery of the Spine
PROC: 0SG0071 Fusion of Lumbar Vertebral Joint with Autologous Tissue Substitute, Posterior Approach, Posterior Column, Open Approach (ICD-10-PCS; 2018-11-05)
PROC: 0ST20ZZ Resection of Lumbar Vertebral Disc, Open Approach (ICD-10-PCS; 2018-11-05)
PROC: 01NB0ZZ Release Lumbar Nerve, Open Approach (ICD-10-PCS; 2018-11-05)
PROC: 0SP00AZ Removal of Interbody Fusion Device from Lumbar Vertebral Joint, Open Approach (ICD-10-PCS; 2018-11-05)
PROC: 0SP30AZ Removal of Interbody Fusion Device from Lumbosacral Joint, Open Approach (ICD-10-PCS; 2018-11-05)
PROC: 07DS3ZZ Extraction of Vertebral Bone Marrow, Percutaneous Approach (ICD-10-PCS; 2018-11-05)
PROC: 4A11X4G Monitoring of Peripheral Nervous Electrical Activity, Intraoperative, External Approach (ICD-10-PCS; 2018-11-05)
PROC: 30233N0 Transfusion of Autologous Red Blood Cells into Peripheral Vein, Percutaneous Approach (ICD-10-PCS; 2018-11-05)
PROC: 0SG00AJ Fusion of Lumbar Vertebral Joint with Interbody Fusion Device, Posterior Approach, Anterior Column, Open Approach (ICD-10-PCS; principal; 2018-11-05 07:30)
DX: M51.16 Intervertebral disc disorders with radiculopathy, lumbar region (principal); F33.9 Major depressive disorder, recurrent, unspecified; G62.9 Polyneuropathy, unspecified; I95.2 Hypotension due to drugs; T40.605A Adverse effect of unspecified narcotics, initial encounter; M48.061 Spinal stenosis, lumbar region without neurogenic claudication; M62.830 Muscle spasm of back; I10 Essential (primary) hypertension; M71.38 Other bursal cyst, other site; M54.12 Radiculopathy, cervical region; M19.031 Primary osteoarthritis, right wrist; M65.4 Radial styloid tenosynovitis [de Quervain]; K21.9 Gastro-esophageal reflux disease without esophagitis; K59.00 Constipation, unspecified; G43.909 Migraine, unspecified, not intractable, without status migrainosus; R26.9 Unspecified abnormalities of gait and mobility; E66.3 Overweight; Z68.28 Body mass index [BMI] 28.0-28.9, adult; Z79.899 Other long term (current) drug therapy; Z98.1 Arthrodesis status; Z87.891 Personal history of nicotine dependence; Z90.49 Acquired absence of other specified parts of digestive tract; Z87.19 Personal history of other diseases of the digestive system; Z88.8 Allergy status to other drugs, medicaments and biological substances; Z82.49 Family history of ischemic heart disease and other diseases of the circulatory system; Z80.0 Family history of malignant neoplasm of digestive organs; Y92.230 Patient room in hospital as the place of occurrence of the external cause
CPT/HCPCS: 72020; 72100; 80048; 84132; 84484; 85025; 86850; 86900; 86901; 87070; 87075; 87205; 88304; 88311; 93005; 94760